=== PATIENT | male | born 1985 | race Caucasian/White ===

== ENCOUNTER 2016-09-27 23:04 | Emergency (ER) | payer SELFPAY ==
[~2016-09-27] VITALS: Ht 180.3 cm; Wt 77.1 kg
[2016-09-27] MEDS ORDERED: KETOROLAC 60 MG/2 ML VIAL IM ONE (23:10)
[2016-09-27 23:11] VITALS: BP 105/65
--- NOTE | 2016-09-27 23:27 | NUR ---
TAKEN TO XRAY VIA WHEELCHAIR
--- NOTE | 2016-09-27 23:51 | NUR ---
TO ER BED 5 VIA WHEELCHAIR
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
--- NOTE | 2016-09-28 00:20 | NUR ---
LEFT SHOULDER IMMOBILIZER PLACED. PT TOLERATED WELL.
--- NOTE | 2016-09-28 00:25 | NUR ---
Patient discharged with v/s stable. Written and verbal after care instructions given and explained. Patient alert, oriented and verbalized understanding of instructions. Ambulatory with steady gait. All questions addressed prior to discharge. ID band removed. Patient advised to follow up with PMD. Rx of TYLENOL WITH CODEINE AND MOTRIN given. Patient educated on indication of medication including possible reaction and side effects. Opportunity to ask questions provided and answered.
[2016-09-28 00:30] VITALS: BP 118/61
== END 2016-09-28 00:25 | disposition home or self-care (01) ==
LOC: MED 23:04
DX: S42.022A Displaced fracture of shaft of left clavicle, initial encounter for closed fracture (principal); R03.0 Elevated blood-pressure reading, without diagnosis of hypertension; M25.562 Pain in left knee; V19.9XXA Pedal cyclist (driver) (passenger) injured in unspecified traffic accident, initial encounter; Y93.89 Activity, other specified; Y92.89 Other specified places as the place of occurrence of the external cause; Y99.8 Other external cause status
CPT/HCPCS: 29105; 73000; 73030; 96372; 99284; J1885